=== PATIENT | male | born 1960 ===

== ENCOUNTER 2021-05-20 01:36 | Emergency (ER) | payer MEDICAID | END 2021-05-20 01:41 | disposition left against medical advice (07) | LOC: ED 01:36 ==

== ENCOUNTER 2021-05-20 15:28 | Inpatient (IN) | payer MEDICAID ==
[2021-05-20] MEDS ORDERED: ASPIRIN 325 MG TAB PO ONE (15:44)
--- NOTE | 2021-05-20 16:06 | XRay Report ---
CHEST 2 VIEWS INDICATION / CLINICAL INFORMATION: Chest pain. COMPARISON: None available. FINDINGS: SUPPORT DEVICES: None. HEART / MEDIASTINUM: No significant abnormality. LUNGS / PLEURA: No significant pulmonary or pleural abnormality. No pneumothorax. ADDITIONAL FINDINGS: No significant additional findings. IMPRESSION: 1. No acute findings. Signer Name: Jaydon Conteh MD Signed: 05/20/2021 4:01 PM Workstation Name: [id number]
[2021-05-20 16:37] LABS: Basophils % (Auto) 0.4 % (0.0-1.8); Eosinophils # (Auto) 0.1 K/mm3 (0.0-0.4); Eosinophils % (Auto) 0.6 % (0.0-4.3); Hematocrit 47.1 % (35.5-45.6); Hemoglobin 16.1 gm/dl (11.8-15.2); Lymphocytes # (Auto) 1.7 K/mm3 (1.2-5.4); Lymphocytes % (Auto) 15.5 % (13.4-35.0); Mean Corpuscular HGB Conc 34 % (32-34); Mean Corpuscular Volume 87 fl (84-94); Monocytes # (Auto) 0.8 K/mm3 (0.0-0.8); Monocytes % (Auto) 7.7 % (0.0-7.3); Platelet Count 239 K/mm3 (140-440); Red Blood Count 5.44 M/mm3 (3.65-5.03); Red Cell Distribution Width 14.8 % (13.2-15.2)
[2021-05-20 16:54] LABS: Alanine Aminotransferase 20 units/L (7-56); Albumin 3.9 g/dL (3.9-5); BUN/Creatinine Ratio 10; Blood Urea Nitrogen 9 mg/dL (9-20); Calcium 9.7 mg/dL (8.4-10.2); Hemolysis Index 21
--- NOTE | 2021-05-20 17:56 | Emergency Department Report ---
<JOSIE FOURNIERPASTOR - Last Filed: 05/20/21 21:54> ED Chest Pain HPI - General Chief Complaint: Chest Pain Stated Complaint: CHEST PAINS Time Seen by Provider: 05/20/21 17:09 - Related Data Allergies Allergy/AdvReac Type Severity Reaction Status Date / Time No Known Allergies Allergy Unverified 05/20/21 15:44 ED Course - Reevaluation(s) Reevaluation #1: I reviewed the findings and management of this patient in real-time and I have personally seen and examined this patient and participated in the decision making for this patient with the midlevel. Patient is a 60-year-old male who presents emergency room with chest pain. Patient had a CTA was inconclusive and then had a nuclear scan and it shows a pulmonary infarct and PE. Patient placed on a heparin drip with heparin protocol. I examined the patient. Lung sounds are clear to auscultation. CV exam shows a normal S1-S2 and no murmur. Patient's abdominal exam is negative. Patient's skin exam is negative. I discussed all results with patient. I discussed plan of care with patient. Patient agrees with plan of care and admission. Patient to be admitted to the hospitalist service. 05/20/21 21:54 - Consultations Consultation #1: Hospitalist consulted for admission. Hospitalist to admit patient. 05/20/21 21:55 ED Medical Decision Making - Lab Data Result diagrams: 05/20/21 16:08 05/20/21 16:08 ED Disposition Clinical Impression: SOB (shortness of breath) Pulmonary embolism Qualifiers: Pulmonary embolism type: unspecified Chronicity: acute Acute cor pulmonale presence: without acute cor pulmonale Qualified Code(s): I26.99 - Other pulmonary embolism without acute cor pulmonale Chest pain Qualifiers: Chest pain type: unspecified Qualified Code(s): R07.9 - Chest pain, unspecified Disposition: DC-09 OP ADMIT IP TO THIS HOSP Condition: Serious Instructions: Nonspecific Chest Pain, Adult Referrals: PRIMARY CARE,MD [Primary Care Provider] - 3-5 Days Print Language: SAMOAN <SHIKHA CARRERA - Last Filed: 05/20/21 22:21> ED Chest Pain HPI - General Source: patient Mode of arrival: Ambulatory Limitations: No Limitations - History of Present Illness Initial Comments: Patient is a 60-year-old male presents emergency room with complaints of left lateral rib pain that began early this morning around 12 AM. He states it is an intermittent sharp pain. He states his pain is worse with taking a deep breath and he feels short of breath. He denies ever having pain like this before. He denies any fever, nausea, vomiting, diarrhea, chills, body aches, hemoptysis, leg swelling. He denies any recent travel, recent surgery, sick contacts. He is a current every day smoker 3 packs/week. He denies any significant family cardiac history. Past medical history of blindness. No allergies to medications. Severity scale (0 -10): 1 Heart Score - HEART Score History: Moderately suspicious EKG: Normal Age: 45-65 Risk factors: 1-2 risk factors Troponin: < normal limit HEART Score: 3 - EKG Read Time Time EKG Completed: 15:44 EKG Read Time: 15:49 ED Review of Systems ROS: Stated complaint: CHEST PAINS Other details as noted in HPI Comment: All other systems reviewed and negative ED Past Medical Hx - Past Medical History Previous Medical History?: Yes Additional medical history: blind - Surgical History Past Surgical History?: Yes Additional Surgical History: eye ED Physical Exam - General Limitations: No Limitations General appearance: alert, in no apparent distress - Head Head exam: Present: atraumatic, normocephalic - Eye Eye exam: Present: normal appearance - ENT ENT exam: Present: mucous membranes moist - Respiratory Respiratory exam: Present: normal lung sounds bilaterally. Absent: respiratory distress, wheezes, rales, rhonchi, stridor, chest wall tenderness, accessory muscle use, decreased breath sounds, prolonged expiratory - Cardiovascular Cardiovascular Exam: Present: regular rate, normal rhythm, normal heart sounds. Absent: systolic murmur, diastolic murmur, rubs, gallop - Neurological Exam Neurological exam: Present: alert, oriented X3 - Psychiatric Psychiatric exam: Present: normal affect, normal mood - Skin Skin exam: Present: warm, dry, intact ED Course Vital Signs 05/20/21 15:35 Temperature 98.4 F Pulse Rate 60 Respiratory 18 Rate Blood Pressure 144/90 [Right] O2 Sat by Pulse 100 Oximetry WILLY score - Willy Score Age > 65: (0) No Aspirin use within the Past 7 Days: (0) No 3 or more CAD Risk Factors: (0) No 2 or more Angina events in past 24 hrs: (0) No Known CAD with more than 50% Stenosis: (0) No Elevated Cardiac Markers: (0) No ST Deviation Greater than 0.5mm: (0) No WILLY Score: 0 ED Medical Decision Making - Lab Data Result diagrams: 05/20/21 16:08 05/20/21 16:08 Lab Results 05/20/21 05/20/21 05/20/21 Range/Units 16:08 16:08 17:30 WBC 11.0 (4.5-11.0) K/mm3 RBC 5.44 H (3.65-5.03) M/mm3 Hgb 16.1 H (11.8-15.2) gm/dl Hct 47.1 H (35.5-45.6) % MCV 87 (84-94) fl MCH 30 (28-32) pg MCHC 34 (32-34) % RDW 14.8 (13.2-15.2) % Plt Count 239 (140-440) K/mm3 Lymph % (Auto) 15.5 (13.4-35.0) % [place] % (Auto) 7.7 H (0.0-7.3) % Eos % (Auto) 0.6 (0.0-4.3) % Baso % (Auto) 0.4 (0.0-1.8) % Lymph # (Auto) 1.7 (1.2-5.4) K/mm3 [place] # (Auto) 0.8 (0.0-0.8) K/mm3 Eos # (Auto) 0.1 (0.0-0.4) K/mm3 Baso # (Auto) 0.0 (0.0-0.1) K/mm3 Seg Neutrophils % 75.8 H (40.0-70.0) % Seg Neutrophils # 8.3 H (1.8-7.7) K/mm3 D-Dimer 1092.37 H (0-234) ng/mlDDU Sodium 135 L (137-145) mmol/L Potassium 4.1 (3.6-5.0) mmol/L Chloride 100.2 (98-107) mmol/L Carbon Dioxide 24 (22-30) mmol/L Anion Gap 15 mmol/L BUN 9 (9-20) mg/dL Creatinine 0.9 (0.8-1.3) mg/dL Estimated GFR > 60 ml/min BUN/Creatinine Ratio 10 % Glucose 114 H (75-100) mg/dL Calcium 9.7 (8.4-10.2) mg/dL Total Bilirubin 0.90 (0.1-1.2) mg/dL AST 18 (5-40) units/L ALT 20 (7-56) units/L Alkaline Phosphatase 131 H (35-129) units/L Troponin T < 0.010 (0.00-0.029) ng/mL Total Protein 7.7 (6.3-8.2) g/dL Albumin 3.9 (3.9-5) g/dL Albumin/Globulin Ratio 1.0 % 05/20/ Range/Units 18:24 WBC (4.5-11.0) K/mm3 RBC (3.65-5.03) M/mm3 Hgb (11.8-15.2) gm/dl Hct (35.5-45.6) % MCV (84-94) fl MCH (28-32) pg MCHC (32-34) % RDW (13.2-15.2) % Plt Count (140-440) K/mm3 Lymph % (Auto) (13.4-35.0) % [place] % (Auto) (0.0-7.3) % Eos % (Auto) (0.0-4.3) % Baso % (Auto) (0.0-1.8) % Lymph # (Auto) (1.2-5.4) K/mm3 [place] # (Auto) (0.0-0.8) K/mm3 Eos # (Auto) (0.0-0.4) K/mm3 Baso # (Auto) (0.0-0.1) K/mm3 Seg Neutrophils % (40.0-70.0) % Seg Neutrophils # (1.8-7.7) K/mm3 D-Dimer (0-234) ng/mlDDU Sodium (137-145) mmol/L Potassium (3.6-5.0) mmol/L Chloride (98-107) mmol/L Carbon Dioxide (22-30) mmol/L Anion Gap mmol/L BUN (9-20) mg/dL Creatinine (0.8-1.3) mg/dL Estimated GFR ml/min BUN/Creatinine Ratio % Glucose (75-100) mg/dL Calcium (8.4-10.2) mg/dL Total Bilirubin (0.1-1.2) mg/dL AST (5-40) units/L ALT (7-56) units/L Alkaline Phosphatase (35-129) units/L Troponin T < 0.010 (0.00-0.029) ng/mL Total Protein (6.3-8.2) g/dL Albumin (3.9-5) g/dL Albumin/Globulin Ratio % - EKG Data EKG shows normal: sinus rhythm, axis, intervals, QRS complexes Rate: bradycardia (at 56 bpm) - EKG Data 05/20/21 17:55 non specific T wave inversion in V1, V2 no STEMI biatrial enlargement - Radiology Data Radiology results: report reviewed Ordering Physician: TAYE GUTIERREZ MD Date of Service: 05/20/21 Procedure(s): XR chest routine 2V Accession Number(s): [id number] cc: ED MD BRENDA Fluoro Time In Minutes: CHEST 2 VIEWS INDICATION / CLINICAL INFORMATION: Chest pain. COMPARISON: None available. FINDINGS: SUPPORT DEVICES: None. HEART / MEDIASTINUM: No significant abnormality. LUNGS / PLEURA: No significant pulmonary or pleural abnormality. No pneumothorax. ADDITIONAL FINDINGS: No significant additional findings. IMPRESSION: 1. No acute findings. Signer Name: Jaydon Conteh MD Signed: 05/20/2021 4:01 PM Workstation Name: [id number] Transcribed By: DB Dictated By: JAYDON CONTEH MD Electronically Authenticated By: JAYDON CONTEH MD Signed Date/Time: 05/20/211600 DD/ 00 TD/TT: Ordering Physician: ROBLES PEGUERO Date of Service: 05/20/21 Procedure(s): CT angio chest Accession Number(s): [id number] cc: ROBLES PEGUERO ADDENDUM Addendum: Examination was compared with nuclear medicine examination. The filling defect within the left lower lung appears relatively extensive area of density in the left lower lung described above. Findings consistent with PTE with associated small infarct. Findings discussed with Shikha Carrera in ER. Signer Name: Bijan Freeman MD Signed: 05/20/2021 9:50 PM Workstation Name: [id number] Addendum Transcribed By: VIVIAN Addendum Dictated By: GLORIA FREEMAN MD Addendum Electronically Authenticated By: GLORIA FREEMAN MD Addendum Signed Date/Time: 05/20/212149 DD/ TD/TT: / CTA CHEST WITH CONTRAST INDICATION / CLINICAL INFORMATION: pleuritic CP, SOB, elevated d-dimer. TECHNIQUE: Axial CT images were obtained through the chest after injection of IV contrast. 3 plane MIP and/or 3D reconstructions were produced. All CT scans at this location are performed using CT dose reduction for ALARA by means of automated exposure control. COMPARISON: None available. FINDINGS: Contrast bolus time is suboptimal with opacification throughout the aorta. The central pulmonary arteries appear patent. There is low signal density within several segmental and peripheral pulmonary arteries bilaterally. Examples in the left lung, axial image 30 L1. Visualized portions of the upper abdomen appear normal. Emphysematous change within the lungs. No focal consolidation right lung. There is increased density left lower lung peripheral opacity. No acute bone findings are seen. Mural thrombus in the abdominal aorta. IMPRESSION: 1. Suboptimal contrast bolus timing. No definite central PTE however segmental and peripheral PTE cannot be excluded with areas of low signal density in segment peripheral p ulmonary arteries as described above. 2. Left lower lung opacity/infiltrate near the costophrenic angle. CRITICAL RESULT: Time of Discovery (DYEING MACHINE TENDER/CDT): 607 Time of Communication (DYEING MACHINE TENDER/CDT): 607 Licensed Practitioner Receiving Report: King ROBLES Read-Back Performed: Yes. Signer Name: Bijan Freeman MD Signed: 05/20/2021 7:09 PM Workstation Name: [id number] Transcribed By: VIVIAN Dictated By: GLORIA FREEMAN MD Electronically Authenticated By: GLORIA FREEMAN MD Signed Date/Time: 05/20/211908 DD/ 04 TD/TT: -- [Addendum Report Added by GLORIA FREEMAN at 2021-05-20 21:56:26] [facility] [address] [id number] Cat Scan Report Signed Patient: ANDRES ALEJANDRO MR#: [id number] : 1960 Acct:[id number] Age/Sex: 60 / M ADM Date: 05/20/21 Loc: ED Attending Dr: Ordering Physician: ROBLES PEGUERO Date of Service: 05/20/21 Procedure(s): CT angio chest Accession Number(s): [id number] cc: ROBLES PEGUERO CTA CHEST WITH CONTRAST INDICATION / CLINICAL INFORMATION: pleuritic CP, SOB, elevated d-dimer. TECHNIQUE: Axial CT images were obtained through the chest after injection of IV contrast. 3 plane MIP and/or 3D reconstructions were produced. All CT scans at this location are performed using CT dose reduction for ALARA by means of automated exposure control. COMPARISON: None available. FINDINGS: Contrast bolus time is suboptimal with opacification throughout the aorta. The central pulmonary arteries appear patent. There is low signal density within several segmental and peripheral pulmonary arteries bilaterally. Examples in the left lung, axial image 30 L1. Visualized portions of the upper abdomen appear normal. Emphysematous change within the lungs. No focal consolidation right lung. There is increased density left lower lung peripheral opacity. No acute bone findings are seen. Mural thrombus in the abdominal aorta. IMPRESSION: 1. Suboptimal contrast bolus timing. No definite central PTE however segmental and peripheral PTE cannot be excluded with areas of low signal density in segment peripheral pulmonary arteries as described above. 2. Left lower lung opacity/infiltrate near the costophrenic angle. CRITICAL RESULT: Time of Discovery (DYEING MACHINE TENDER/CDT): 607 Time of Communication (DYEING MACHINE TENDER/CDT): 607 Licensed Practitioner Receiving Report: King ROBLES Read-Back Performed: Yes. Signer Name: Bijan Freeman MD Signed: 05/20/2021 7:09 PM Workstation Name: [id number] Transcribed By: VIVIAN Dictated By: GLORIA FREEMAN MD Electronically Authenticated By: GLROIA FREEMAN MD Signed Date/Time: 05/20/211908 DD/ 04 TD/TT: Print Ordering Physician: ROBLES PEGUERO Date of Service: 05/20/21 Procedure(s): NM perfusion only lung scan Accession Number(s): [id number] cc: ROBLES PEGUERO Nasal medicine perfusion only scan INDICATION: Left chest pain FINDINGS: 5 mCi of technetium 99 MAA administered for perfusion only. There is questionable left lower lung segmental defect. This corresponds to the questioned area on CTA. IMPRESSION: Suggested filling defect within the left lower lung consistent with PE when correlated with CT angiogram done earlier tonight. There is a density left lower lung suggest pulmonary infarct. CRITICAL RESULT: Time of Discovery (DYEING MACHINE TENDER/CDT): 844 Time of Communication (DYEING MACHINE TENDER/CDT): 845 Licensed Practitioner Receiving Report: Shikha Carrera Read-Back Performed: Yes. Signer Name: Bijan Freeman MD Signed: 05/20/2021 9:46 PM Workstation Name: [id number] Transcribed By: VIVIAN Dictated By: GLORIA FREEMAN MD Electronically Authenticated By: GLORIA FREEMAN MD Signed Date/Time: 05/20/212145 DD/ 32 TD/TT: - Medical Decision Making Patient is a 60-year-old male presents emergency room with complaints of left lateral rib pain that began early this morning around 12 AM. He states it is an intermittent sharp pain. He states his pain is worse with taking a deep breath and he feels short of breath. He denies ever having pain like this before. He denies any fever, nausea, vomiting, diarrhea, chills, body aches, hemoptysis, leg swelling. He denies any recent travel, recent surgery, sick contacts. He is a current every day smoker 3 packs/week. He denies any significant family cardiac history. Past medical history of blindness. No allergies to medications. VSS. EKG: non specific T wave inversion in V1, V2, no STEMI, biatrial enlargement. labs significant for elevated d-dimer. troponin is negative x2. CXR: 1. No acute findings. CTA chest: 1. Suboptimal contrast bolus timing. No definite central PTE however segmental and peripheral PTE cannot be excluded with areas of low signal density in segment peripheral pulmonary arteries as described above. 2. Left lower lung opacity/infiltrate near the costophrenic angle. VQ scan: Suggested filling defect within the left lower lung consistent with PE when [facility] There is a density left lower lung suggest pulmonary infarct. discussed case with Dr. Rasmussen, ER attending who agrees with admission and placed order for heparin drip. Dr. Cummins, hospitalist accepted and resumed care of patient, admitted to hospitalist service. Critical Care Time: Yes Critical care time in (mins) excluding proc time.: 35 Critical care attestation.: If time is entered above; I have spent that time in minutes in the direct care of this critically ill patient, excluding procedure time. Critical Care Time: critical care time includes multiple reexaminations, interpretation of diagnostic and laboratory testing, and consultations ED Disposition Is pt being admited?: Yes Does the pt Need Aspirin: No Time of Disposition: 22:08
--- NOTE | 2021-05-20 19:14 | Cat Scan Report ---
CTA CHEST WITH CONTRAST INDICATION / CLINICAL INFORMATION: pleuritic CP, SOB, elevated d-dimer. TECHNIQUE: Axial CT images were obtained through the chest after injection of IV contrast. 3 plane OH P and/or 3D reconstructions were produced. All CT scans at this location are performed using CT dose reduction for ALARA by means of automated exposure control. COMPARISON: None available. FINDINGS: Contrast bolus time is suboptimal with opacification throughout the aorta. The central pulmonary jackie marlo appear patent. There is low signal density within several segmental and peripheral pulmonary art eries bilaterally. Examples in the left lung, axial image 30 L1. Visualized portions of the upper abd omen appear normal. Emphysematous change within the lungs. No focal consolidation right lung. There i s increased density left lower lung peripheral opacity. No acute bone findings are seen. Mural thromb us in the abdominal aorta. IMPRESSION: 1. Suboptimal contrast bolus timing. No definite central PTE however segmental and peripheral PTE can not be excluded with areas of low signal density in segment peripheral pulmonary arteries as describe d above. 2. Left lower lung opacity/infiltrate near the costophrenic angle. CRITICAL RESULT: Time of Discovery (AIDS NURSE/CDT): 607 Time of Communication (AIDS NURSE/CDT): 607 Licensed Practitioner Receiving Report: King ROBLES Read-Back Performed: Yes. Signer Name: Bijan Freeman MD Signed: 05/20/2021 7:09 PM Workstation Name: [id number]
[2021-05-20] MEDS ORDERED: cefTRIAXone/NS 1 GM/50 ML 1 GM/50 ML BAG IV ONE (19:28)
[2021-05-20] MEDS ORDERED: SODIUM CHLORIDE 0.9% 1000 ML 1,000 ML IV ONE (19:28)
[2021-05-20] MEDS ORDERED: AZITHROMYCIN/NS 500 MG/250 ML 500 MG/250 ML BAG IV ONE (19:28)
--- NOTE | 2021-05-20 21:51 | Nuclear Medicine Report ---
Nasal medicine perfusion only scan INDICATION: Left chest pain FINDINGS: 5 mCi of technetium 99 MAA administered for perfusion only. There is questionable left lowe r lung segmental defect. This corresponds to the questioned area on CTA. IMPRESSION: Suggested filling defect within the left lower lung consistent with PE when correlated with CT angiog krista done earlier tonight. There is a density left lower lung suggest pulmonary infarct. CRITICAL RESULT: Time of Discovery (CIVIL ENGINEER IN TRAINING/CDT): 844 Time of Communication (CIVIL ENGINEER IN TRAINING/CDT): 845 Licensed Practitioner Receiving Report: Shikha Carrera Read-Back Performed: Yes. Signer Name: Bijan Freeman MD Signed: 05/20/2021 9:46 PM Workstation Name: [id number]
[2021-05-20] MEDS ORDERED: HEPARIN 10,000 UNITS/10 ML VIAL IV PRN (21:52)
[2021-05-20] MEDS ORDERED: HEPARIN 10,000 UNITS/10 ML VIAL IV ONE (21:52)
[2021-05-20 22:18] LABS: INR 1.05 (0.87-1.13); Partial Thromboplastin Time 30.3 Sec. (24.2-36.6)
--- NOTE | 2021-05-20 22:44 | History and Physical Report ---
History of Present Illness Date of examination: 05/20/21 Date of admission: 05/20/21 22:08 Chief complaint: chest pain History of present illness: This is a 60-year-old male who presents emergency room with chest pain. Patient had a CTA was inconclusive and then had a nuclear scan and it shows a pulmonary infarct and PE. Patient placed on a heparin drip with heparin protocol. ED work-up showed WBC 11.0, hemoglobin 16.1, platelet 239, D-dimer 1092.37, sodium 135, potassium 4.1, serum glucose 114, troponin negative. Patient seen in the ED alert oriented x3 he reports chest pain and difficulty breathing CT of the chest was done patient was positive for pulmonary embolus Past History Past Medical History: No medical history Social history: lives with family, smoking Family history: no significant family history Medications and Allergies Allergies Allergy/AdvReac Type Severity Reaction Status Date / Time No Known Allergies Allergy Unverified 05/20/21 15:44 Active Meds: Active Medications Heparin Sodium (Porcine) (Heparin 10,000 Units/10 Ml Vial) 3,100 unit 40 unit/kg (3100 unit) IV Q6H PRN PRN Reason: Anti-Xa Assay < 0.1 units/ml Heparin Sodium/Sodium Chloride (Heparin/ 0.45% Nacl-25,000 Unit/500 Ml) 25,000 unit in 500 mls @ 23 mls/hr IV TITR LINDA; Protocol Review of Systems Ears, nose, mouth and throat: no epistaxis, no bleeding gums Cardiovascular: chest pain Gastrointestinal: no melena Integumentary: no rash, no pruritis Neurological: no head injury Psychiatric: no disorientation, no hallucinations Hematologic/Lymphatic: no lymphadenopathy, no lymphedema Exam - Constitutional Vitals: Temp Pulse Resp BP Pulse Ox 98.4 F 60 18 144/90 100 05/20/21 15:35 05/20/21 15:35 05/20/21 15:35 05/20/21 15:35 05/20/21 15:35 General appearance: Present: mild distress, well-nourished - EENT Eyes: Present: PERRL ENT: hearing intact, clear oral mucosa - Neck Neck: Present: supple, normal ROM - Respiratory Respiratory effort: normal Respiratory: bilateral: CTA - Cardiovascular Heart Sounds: Present: S1 & S2. Absent: rub, click - Extremities Extremities: pulses symmetrical, No edema Peripheral Pulses: within normal limits - Abdominal General gastrointestinal: Present: soft, non-tender, non-distended, normal bowel sounds Male genitourinary: Present: normal - Integumentary Integumentary: Present: clear, warm, dry - Musculoskeletal Musculoskeletal: gait normal, strength equal bilaterally - Psychiatric Psychiatric: appropriate mood/affect, intact judgment & insight - Neurologic Neurologic: CNII-XII intact, moves all extremities - Allied Health Allied health notes reviewed: nursing HEART Score - HEART Score EKG: Normal Age: 45-65 Risk factors: 1-2 risk factors Troponin: Troponin T < 0.010 ng/mL (0.00-0.029) 05/20/21 18:24 Troponin: < normal limit Results - Labs CBC & Chem 7: 05/20/21 16:08 05/20/21 16:08 Labs: Abnormal lab results 05/20/21 05/20/21 05/20/21 Range/Units 16:08 16:08 17:30 RBC 5.44 H (3.65-5.03) M/mm3 Hgb 16.1 H (11.8-15.2) gm/dl Hct 47.1 H (35.5-45.6) % [place] % (Auto) 7.7 H (0.0-7.3) % Seg Neutrophils % 75.8 H (40.0-70.0) % Seg Neutrophils # 8.3 H (1.8-7.7) K/mm3 D-Dimer 1092.37 H (0-234) ng/mlDDU Sodium 135 L (137-145) mmol/L Glucose 114 H (75-100) mg/dL Alkaline Phosphatase 131 H (35-129) units/L Assessment and Plan - Patient Problems (1) Pulmonary embolism Current Visit: Yes Status: Acute Qualifiers: Pulmonary embolism type: unspecified Chronicity: acute Acute cor pulmonale presence: without acute cor pulmonale Qualified Code(s): I26.99 - Other pulmonary embolism without acute cor pulmonale Plan to address problem: Patient came with chest pain-has elevated d-dimer on admission CT of the chest positive for PE Start heparin drip per protocol Nuclear Plant Technical Advisor consult. Echocardiogram (2) Chest pain Current Visit: Yes Status: Acute Qualifiers: Chest pain type: unspecified Qualified Code(s): R07.9 - Chest pain, unspecified Plan to address problem: Likely secondary to pulmonary embolism As needed pain management (3) Marijuana use Current Visit: Yes Status: Acute Plan to address problem: Discussed cessation (4) DVT prophylaxis Current Visit: Yes Status: Acute Plan to address problem: Patient on heparin drip for PE (5) Full code status Current Visit: Yes Status: Acute Plan to address problem: Patient is full code
[2021-05-20] MEDS ORDERED: ALUM-MAG HYDROXIDE-SIMETHICONE 200-200-20MG/5ML ORAL LIQD 30 ML PO PRN (22:54)
[2021-05-20] MEDS ORDERED: NALOXONE 0.4 MG/1 ML INJ IV PRN (22:54)
[2021-05-20] MEDS ORDERED: MAGNESIUM HYDROXIDE (MOM) ORAL LIQD UDC PO PRN (22:54)
[2021-05-20] MEDS ORDERED: MORPHINE 2 MG/1 ML INJ IV PRN (22:54)
[2021-05-20] MEDS ORDERED: SENNOSIDES 8.6 MG TAB PO PRN (22:54)
[2021-05-20] MEDS ORDERED: ONDANSETRON 4 MG/2 ML INJ IV PRN (22:54)
[2021-05-20] MEDS ORDERED: METOCLOPRAMIDE 10 MG/2 ML INJ IV PRN (22:54)
[2021-05-20] MEDS: HEPARIN/ 0.45% NACL DRIP 25,000 UNIT/500 ML BAG IV SCH (23:06)
[2021-05-21] MEDS: ACETAMINOPHEN 325 MG TAB PO PRN (02:04)
[2021-05-21] MEDS: HYDROcodone/ACETAMINOPHEN 5-325 MG TAB PO PRN ×3 (05:40→21:41)
[2021-05-21 06:53] LABS: Basophils % (Auto) 0.5 % (0.0-1.8); Eosinophils # (Auto) 0.1 K/mm3 (0.0-0.4); Eosinophils % (Auto) 0.7 % (0.0-4.3); Hematocrit 42.2 % (35.5-45.6); Hemoglobin 14.7 gm/dl (11.8-15.2); Lymphocytes % (Auto) 21.5 % (13.4-35.0); Mean Corpuscular HGB Conc 35 % (32-34); Mean Corpuscular Volume 87 fl (84-94); Monocytes # (Auto) 0.9 K/mm3 (0.0-0.8); Monocytes % (Auto) 9.2 % (0.0-7.3); Platelet Count 205 K/mm3 (140-440); Red Blood Count 4.87 M/mm3 (3.65-5.03); Red Cell Distribution Width 14.9 % (13.2-15.2)
[2021-05-21 07:13] LABS: Alanine Aminotransferase 18 units/L (7-56); Albumin 3.4 g/dL (3.9-5); BUN/Creatinine Ratio 9; Blood Urea Nitrogen 8 mg/dL (9-20); Calcium 8.6 mg/dL (8.4-10.2); Hemolysis Index 8
[2021-05-21] MEDS: FAMOTIDINE 20 MG/2 ML INJ IV SCH ×2 (09:11→21:41)
--- NOTE | 2021-05-21 10:42 | Progress Note ---
Assessment and Plan Assessment and plan: 60-year-old male presented through the emergency department with chest pain. CTA of the chest/pulmonary perfusion imaging confirmed acute pulmonary embolus. Patient was admitted with diagnosis of acute pulmonary embolus and placed on IV heparin for anticoagulation. Acute pulmonary embolism/pulmonary infarct Chest pain. Etiology secondary to #1 Marijuana use 05/21/2021. Patient will be maintained on IV heparin drip for now. We will transition to Eliquis. Check echocardiogram to rule out right heart strain. Vascular surgery consultation History Interval history: This is a 60-year-old male who presents emergency room with chest pain. Patient had a CTA was inconclusive and then had a nuclear scan and it shows a pulmonary infarct and PE. Patient placed on a heparin drip with heparin protocol. ED work-up showed WBC 11.0, hemoglobin 16.1, platelet 239, D-dimer 1092.37, sodium 135, potassium 4.1, serum glucose 114, troponin negative. Patient seen in the ED alert oriented x3 he reports chest pain and difficulty breathing CT of the chest was done patient was positive for pulmonary embolus Hospitalist Physical - Constitutional Vitals: Temp Pulse Resp BP Pulse Ox 98.5 F 60 19 140/82 98 05/21/21 08:08 05/21/21 08:08 05/21/21 08:08 05/21/21 08:08 05/21/21 08:54 General appearance: Present: mild distress, well-nourished - EENT Eyes: Present: PERRL, EOM intact ENT: hearing intact, clear oral mucosa, dentition normal - Neck Neck: Present: supple, normal ROM - Respiratory Respiratory effort: normal Respiratory: bilateral: CTA - Cardiovascular Rhythm: regular Heart Sounds: Present: S1 & S2. Absent: gallop, rub - Extremities Extremities: no ischemia, No edema, Full ROM - Abdominal General gastrointestinal: soft, non-tender, non-distended, normal bowel sounds - Integumentary Integumentary: Present: clear, warm, dry - Neurologic Neurologic: CNII-XII intact, moves all extremities HEART Score - HEART Score EKG: Normal Age: 45-65 Risk factors: 1-2 risk factors Troponin: Troponin T < 0.010 ng/mL (0.00-0.029) 05/20/21 18:24 Troponin: < normal limit Results - Labs CBC & Chem 7: 05/21/21 05:29 05/21/21 05:29 Labs: Laboratory Last Values WBC 9.3 K/mm3 (4.5-11.0) 05/21/21 05:29 RBC 4.87 M/mm3 (3.65-5.03) 05/21/21 05:29 Hgb 14.7 gm/dl (11.8-15.2) 05/21/21 05:29 Hct 42.2 % (35.5-45.6) 05/21/21 05:29 MCV 87 fl (84-94) 05/21/21 05:29 MCH 30 pg (28-32) 05/21/21 05:29 MCHC 35 % (32-34) H 05/21/21 05:29 RDW 14.9 % (13.2-15.2) 05/21/21 05:29 Plt Count 205 K/mm3 (140-440) 05/21/21 05:29 Lymph % (Auto) 21.5 % (13.4-35.0) 05/21/21 05:29 [place] % (Auto) 9.2 % (0.0-7.3) H 05/21/21 05:29 Eos % (Auto) 0.7 % (0.0-4.3) 05/21/21 05:29 Baso % (Auto) 0.5 % (0.0-1.8) 05/21/21 05:29 Lymph # (Auto) 2.0 K/mm3 (1.2-5.4) 05/21/21 05:29 [place] # (Auto) 0.9 K/mm3 (0.0-0.8) H 05/21/21 05:29 Eos # (Auto) 0.1 K/mm3 (0.0-0.4) 05/21/21 05:29 Baso # (Auto) 0.0 K/mm3 (0.0-0.1) 05/21/21 05:29 Seg Neutrophils % 68.1 % (40.0-70.0) 05/21/21 05:29 Seg Neutrophils # 6.3 K/mm3 (1.8-7.7) 05/21/21 05:29 PT 14.3 Sec. (12.2-14.9) 05/20/21 22:02 INR 1.05 (0.87-1.13) 05/20/21 22:02 APTT 30.3 Sec. (24.2-36.6) 05/20/21 22:02 D-Dimer 1092.37 ng/mlDDU (0-234) H 05/20/21 17:30 Heparin Anti-Xa Level 0.21 U.I./ml (0.3-0.7) L 05/21/21 05:29 Sodium 137 mmol/L (137-145) 05/21/21 05:29 Potassium 3.6 mmol/L (3.6-5.0) 05/21/21 05:29 Chloride 103.6 mmol/L (98-107) 05/21/21 05:29 Carbon Dioxide 23 mmol/L (22-30) 05/21/21 05:29 Anion Gap 14 mmol/L 05/21/21 05:29 BUN 8 mg/dL (9-20) L 05/21/21 05:29 Creatinine 0.9 mg/dL (0.8-1.3) 05/21/21 05:29 Estimated GFR > 60 ml/min 05/21/21 05:29 BUN/Creatinine Ratio 9 % 05/21/21 05:29 Glucose 78 mg/dL (75-100) 05/21/21 05:29 Hemoglobin A1c 5.6 % (4-6) 05/20/21 16:08 Calcium 8.6 mg/dL (8.4-10.2) 05/21/21 05:29 Total Bilirubin 0.50 mg/dL (0.1-1.2) 05/21/21 05:29 AST 15 units/L (5-40) 05/21/21 05:29 ALT 18 units/L (7-56) 05/21/21 05:29 Alkaline Phosphatase 120 units/L (35-129) 05/21/21 05:29 Troponin T < 0.010 ng/mL (0.00-0.029) 05/20/21 18:24 Total Protein 7.1 g/dL (6.3-8.2) 05/21/21 05:29 Albumin 3.4 g/dL (3.9-5) L 05/21/21 05:29 Albumin/Globulin Ratio 0.9 % 05/21/21 05:29 Malhotra/IV: Voiding Method Urinal Active Medications - Current Medications Current Medications: Generic Name Dose Route Start Last Admin Trade Name Freq PRN Reason Stop Dose Admin Acetaminophen 650 mg 05/20/21 22:54 05/21/21 02:04 Acetaminophen 325 Mg Tab PO 650 mg Q4H PRN Administration Pain MILD(1-3)/Fever >100.5/SOL Hydrocodone Bitart/Acetaminophen 2 each 05/20/21 22:54 05/21/21 05:40 Hydrocodone/Acetaminophen 5-325 Mg Tab PO 2 each Q6H PRN Administration Pain, Moderate (4-6) Al Hydrox/Mg Hydrox/Simethicone 30 ml 05/20/21 22:54 Alum-Mag Hydroxide-Simethicone [id number]/5ml Oral Liqd 30 Ml PO Q4H PRN Indigestion Famotidine 20 mg 05/21/21 10:00 05/21/21 09:11 Famotidine 20 Mg/2 Ml Inj IV 20 mg BID LINDA Administration Heparin Sodium (Porcine) 3,100 unit 05/20/21 21:52 Heparin 10,000 Units/10 Ml Vial 40 unit/kg (3100 unit) IV Q6H PRN Anti-Xa Assay < 0.1 units/ml Heparin Sodium/Sodium Chloride 25,000 unit in 500 mls @ 23 mls/hr 05/20/21 22:00 05/21/21 07:51 Heparin/ 0.45% Nacl-25,000 Unit/500 Ml IV 1,250 units/hr TITR LINDA 25 mls/hr Titration Protocol 1,150 UNITS/HR Magnesium Hydroxide 30 ml 05/20/21 22:54 Magnesium Hydroxide (Mom) Oral Liqd Udc PO Q4H PRN Constipation Metoclopramide HCl 10 mg 05/20/21 22:54 Metoclopramide 10 Mg/2 Ml Inj IV Q6H PRN Nausea And Vomiting Naloxone HCl 0.1 mg 05/20/21 22:54 Naloxone 0.4 Mg/1 Ml Inj IV Q2MIN PRN Res Rate </= 8 or 02 SAT < 92% Ondansetron HCl 4 mg 05/20/21 22:54 Ondansetron 4 Mg/2 Ml Inj IV Q8H PRN Nausea And Vomiting Senna 8.6 mg 05/20/21 22:54 Sennosides 8.6 Mg Tab PO Q12HR PRN Constipation Sodium Chloride 10 ml 05/20/21 22:54 Sodium Chloride 0.9% 10 Ml Flush Syringe IV PRN PRN LINE FLUSH
--- NOTE | 2021-05-21 15:45 | Consultation ---
History of Present Illness Consult date: 05/21/21 Reason for consult: chest pain History of present illness: This is a 60-year-old male who presents emergency room with chest pain. Patient had a CTA was inconclusive and then had a nuclear scan and it shows a pulmonary infarct and PE. Patient placed on a heparin drip with heparin protocol. ED work-up showed WBC 11.0, hemoglobin 16.1, platelet 239, D-dimer 1092.37, sodium 135, potassium 4.1, serum glucose 114, troponin negative. Patient seen in the ED alert oriented x3 he reports chest pain and difficulty breathing CT of the chest was done patient was suspicious for pulmonary embolus but not conclusive because of suboptimal dye bolus. A perfusion lung scan was performed which seems to have confirmed the pulmonary embolism and also pulmonary infarct which was noted on CT in the left side. Patient denied significant immobilization even though he reports sitting for long hours in the porch and not in the chair on his porch on a daily basis. He also denied any swelling or pain in the lower extremity. Pain is mostly in the posterior left chest and is somewhat pleuritic Past History Past Medical History: No medical history Social history: lives with family, smoking Family history: no significant family history Medications and Allergies Allergies Allergy/AdvReac Type Severity Reaction Status Date / Time No Known Allergies Allergy Unverified 05/20/21 15:44 Active Meds: Active Medications Acetaminophen (Acetaminophen 325 Mg Tab) 650 mg PO Q4H PRN PRN Reason: Pain MILD(1-3)/Fever >100.5/SOL Last Admin: 05/21/21 02:04 Dose: 650 mg Documented by: Hydrocodone Bitart/Acetaminophen (Hydrocodone/Acetaminophen 5-325 Mg Tab) 2 each PO Q6H PRN PRN Reason: Pain, Moderate (4-6) Last Admin: 05/21/21 11:30 Dose: 2 each Documented by: Al Hydrox/Mg Hydrox/Simethicone (Alum-Mag Hydroxide-Simethicone [id number]/5ml Oral Liqd 30 Ml) 30 ml PO Q4H PRN PRN Reason: Indigestion Famotidine (Famotidine 20 Mg/2 Ml Inj) 20 mg IV BID LINDA Last Admin: 05/21/21 09:11 Dose: 20 mg Documented by: Heparin Sodium (Porcine) (Heparin 10,000 Units/10 Ml Vial) 3,100 unit 40 unit/kg (3100 unit) IV Q6H PRN PRN Reason: Anti-Xa Assay < 0.1 units/ml Heparin Sodium/Sodium Chloride (Heparin/ 0.45% Nacl-25,000 Unit/500 Ml) 25,000 unit in 500 mls @ 23 mls/hr IV TITR LINDA; Protocol Last Titration: 05/21/21 07:51 Dose: 1,250 units/hr, 25 mls/hr Documented by: Magnesium Hydroxide (Magnesium Hydroxide (Mom) Oral Liqd Udc) 30 ml PO Q4H PRN PRN Reason: Constipation Metoclopramide HCl (Metoclopramide 10 Mg/2 Ml Inj) 10 mg IV Q6H PRN PRN Reason: Nausea And Vomiting Naloxone HCl (Naloxone 0.4 Mg/1 Ml Inj) 0.1 mg IV Q2MIN PRN PRN Reason: Res Rate </= 8 or 02 SAT < 92% Ondansetron HCl (Ondansetron 4 Mg/2 Ml Inj) 4 mg IV Q8H PRN PRN Reason: Nausea And Vomiting Senna (Sennosides 8.6 Mg Tab) 8.6 mg PO Q12HR PRN PRN Reason: Constipation Sodium Chloride (Sodium Chloride 0.9% 10 Ml Flush Syringe) 10 ml IV PRN PRN PRN Reason: LINE FLUSH Review of Systems All systems: negative Cardiovascular: chest pain Physical Examination Vital signs: Vital Signs Temp Pulse Resp BP Pulse Ox 98.4 F 60 18 144/90 100 05/20/21 15:35 05/20/21 15:35 05/20/21 15:35 05/20/21 15:35 05/20/21 15:35 General appearance: no acute distress Eyes: non-icteric ENT: oropharynx moist Neck: supple, no JVD Effort: normal Ascultation: Bilateral: clear Percussion: Bilateral: not dull Cardiovascular: regular rate and rhythm Gastrointestinal: normoactive bowel sounds, soft, non-tender Integumentary: normal Extremities: no cyanosis, no edema, pink and warm Musculoskeletal: no deformities Gait: other (Not tested) normal mental status, non-focal exam mood appropriate Results - Laboratory Findings CBC and BMP: 05/21/21 05:29 05/21/21 05:29 PT/INR, D-dimer PT 14.3 Sec. (12.2-14.9) 05/20/21 22:02 INR 1.05 (0.87-1.13) 05/20/21 22:02 D-Dimer 1092.37 ng/mlDDU (0-234) H 05/20/21 17:30 Abnormal lab findings: Abnormal Labs 05/20/21 05/20/21 05/20/21 16:08 16:08 17:30 RBC 5.44 H Hgb 16.1 H Hct 47.1 H MCHC [place] % (Auto) 7.7 H [place] # (Auto) Seg Neutrophils % 75.8 H Seg Neutrophils # 8.3 H D-Dimer 1092.37 H Heparin Anti-Xa Level Sodium 135 L BUN Glucose 114 H Alkaline Phosphatase 131 H Albumin 05/21/21 05/21/21 05/21/21 05:29 05:29 05:29 RBC Hgb Hct MCHC 35 H [place] % (Auto) 9.2 H [place] # (Auto) 0.9 H Seg Neutrophils % Seg Neutrophils # D-Dimer Heparin Anti-Xa Level 0.21 L Sodium BUN 8 L Glucose Alkaline Phosphatase Albumin 3.4 L - Diagnostic Findings CT scan - chest: image reviewed (CTA chest suggest possible pulmonary embolism. Suboptimal bolus time) Assessment and Plan Impression: Pulmonary embolism with possible pulmonary infarct on the left side. Recommendation: Agree with heparin and converting it to oral Eliquis prior to discharge Agree with echocardiogram to evaluate right heart function Will order lower extremity venous Doppler studies to rule out DVT.
[2021-05-21] MEDS: HEPARIN/ 0.45% NACL DRIP 25,000 UNIT/500 ML BAG IV SCH (18:10)
--- NOTE | 2021-05-21 21:03 | Consultation ---
History of Present Illness - Reason for Consult Consult date: 05/21/21 Pulmonary Embolus - History of Present Illness The patient is a 60-year-old male who presented to the emergency department with complaints of shortness of breath and left chest and back pain. He states that on prior to his presentation he had sudden pain with shortness of breath at approximately 2 AM while watching TV. He denies having any prior history of shortness of breath or chest pain. He denies any recent leg swelling, prolonged bedrest, long trips, or recent surgery. He denies any unwanted weight loss. He denies any history of bloody bowel movements or changes in his bowel habits. He does not know of any family history of blood clots. He has no additional complaints at this time. 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) Social history: lives with family, smoking Family history: no significant family history Medications and Allergies Allergies Allergy/AdvReac Type Severity Reaction Status Date / Time No Known Allergies Allergy Unverified 05/20/21 15:44 Home Medications Medication Instructions Recorded Confirmed Last Taken Type No Known Home Medications [No 05/21/21 05/21/21 Unknown History Reported Home Medications] Active Meds: Active Medications Acetaminophen (Acetaminophen 325 Mg Tab) 650 mg PO Q4H PRN PRN Reason: Pain MILD(1-3)/Fever >100.5/SOL Last Admin: 05/21/21 02:04 Dose: 650 mg Documented by: Hydrocodone Bitart/Acetaminophen (Hydrocodone/Acetaminophen 5-325 Mg Tab) 2 each PO Q6H PRN PRN Reason: Pain, Moderate (4-6) Last Admin: 05/21/21 11:30 Dose: 2 each Documented by: Al Hydrox/Mg Hydrox/Simethicone (Alum-Mag Hydroxide-Simethicone [id number]/5ml Oral Liqd 30 Ml) 30 ml PO Q4H PRN PRN Reason: Indigestion Famotidine (Famotidine 20 Mg/2 Ml Inj) 20 mg IV BID LINDA Last Admin: 05/21/21 09:11 Dose: 20 mg Documented by: Heparin Sodium (Porcine) (Heparin 10,000 Units/10 Ml Vial) 3,100 unit 40 unit/kg (3100 unit) IV Q6H PRN PRN Reason: Anti-Xa Assay < 0.1 units/ml Heparin Sodium/Sodium Chloride (Heparin/ 0.45% Nacl-25,000 Unit/500 Ml) 25,000 unit in 500 mls @ 23 mls/hr IV TITR LINDA; Protocol Last Admin: 05/21/21 18:10 Dose: 1,250 units/hr, 25 mls/hr Documented by: Magnesium Hydroxide (Magnesium Hydroxide (Mom) Oral Liqd Udc) 30 ml PO Q4H PRN PRN Reason: Constipation Metoclopramide HCl (Metoclopramide 10 Mg/2 Ml Inj) 10 mg IV Q6H PRN PRN Reason: Nausea And Vomiting Naloxone HCl (Naloxone 0.4 Mg/1 Ml Inj) 0.1 mg IV Q2MIN PRN PRN Reason: Res Rate </= 8 or 02 SAT < 92% Ondansetron HCl (Ondansetron 4 Mg/2 Ml Inj) 4 mg IV Q8H PRN PRN Reason: Nausea And Vomiting Senna (Sennosides 8.6 Mg Tab) 8.6 mg PO Q12HR PRN PRN Reason: Constipation Sodium Chloride (Sodium Chloride 0.9% 10 Ml Flush Syringe) 10 ml IV PRN PRN PRN Reason: LINE FLUSH Review of Systems All systems: negative Exam - Constitutional Vitals: Temp Pulse Resp BP Pulse Ox 99.4 F 56 L 18 124/74 97 05/21/21 18:59 05/21/21 18:59 05/21/21 18:59 05/21/21 18:59 05/21/21 18:59 General appearance: Present: no acute distress - Respiratory Respiratory effort: normal - Cardiovascular Rhythm: regular - Extremities Extremities: no ischemia, pulses intact (Palpable pedal pulses bilaterally), No edema - Abdominal General gastrointestinal: Present: soft, non-tender, non-distended, other (Palpable abdominal aorta however unable to estimate the size) Results - Labs CBC & Chem 7: 05/21/21 05:29 05/21/21 05:29 Labs: Abnormal lab results 05/21/21 05/21/21 05/21/21 Range/Units 05:29 05:29 05:29 MCHC 35 H (32-34) % [place] % (Auto) 9.2 H (0.0-7.3) % [place] # (Auto) 0.9 H (0.0-0.8) K/mm3 Heparin Anti-Xa Level 0.21 L (0.3-0.7) U.I./ml BUN 8 L (9-20) mg/dL Albumin 3.4 L (3.9-5) g/dL - Imaging and Cardiology CT scan - chest: image reviewed (Evidence of left lung pulmonary infarct however the timing of the bolus sheath was delayed but there was no evidence of an embolus in the main pulmonary arteries or any obvious thrombus within the segmental branches) Assessment and Plan The patient is a 60-year-old male who presented to the emergency department with complaints of shortness of breath associated with left chest and back pain. His CTA was inconclusive however there is evidence of left lower pulmonary infarct. His pulmonary perfusion study suggest possible PE. He also has an elevated D- dimer and these findings would suggest that the patient has a pulmonary embolus. He does not relate history of significant edema however the patient is clinically blind and may not appreciate any swelling that may have been present. I agree with the heparin drip and conversion to Eliquis. At this point I do not believe he requires vascular surgery intervention as he has no obvious signs of right heart strain. The patient does not provide a history of a provoked PE so I will recommend a hypercoagulable work-up to determine the length of treatment for anticoagulation. In addition to treatment for his pulmonary embolus his proximal abdominal aorta appeared ectatic with mural thrombus which suggest he may have an infrarenal aneurysm. Would recommend an abdominal aortic ultrasound to evaluate the size of the aorta for aneurysmal dilatation. I discussed this with the patient expressed understanding and agrees with the plan.
[2021-05-22 05:55] LABS: Hematocrit 40.5 % (35.5-45.6); Hemoglobin 13.9 gm/dl (11.8-15.2)
--- NOTE | 2021-05-22 08:47 | Progress Note ---
Assessment and Plan Assessment and plan: 60-year-old male presented through the emergency department with chest pain. CTA of the chest/pulmonary perfusion imaging confirmed acute pulmonary embolus. Patient was admitted with diagnosis of acute pulmonary embolus and placed on IV heparin for anticoagulation. Acute pulmonary embolism/pulmonary infarct Chest pain. Etiology secondary to #1 Marijuana use 05/21/2021. Patient will be maintained on IV heparin drip for now. We will transition to Eliquis. Check echocardiogram to rule out right heart strain. Vascular surgery consultation 05/22/2021. Patient will be transition to Eliquis today. Vascular surgery reports that patient has proximal abdominal aorta that appears ectatic with m ural thrombus which suggests he may have an infrarenal aneurysm. Vascular surgery recommends an abdominal aortic ultrasound to evaluate the size of the aorta for aneurysmal dilatation. Consult hematology for hypercoagulable work-up given unprovoked PE History Interval history: This is a 60-year-old male who presents emergency room with chest pain. Patient had a CTA was inconclusive and then had a nuclear scan and it shows a pulmonary infarct and PE. Patient placed on a heparin drip with heparin protocol. ED work-up showed WBC 11.0, hemoglobin 16.1, platelet 239, D-dimer 1092.37, sodium 135, potassium 4.1, serum glucose 114, troponin negative. Patient seen in the ED alert oriented x3 he reports chest pain and difficulty breathing CT of the chest was done patient was positive for pulmonary embolus Hospitalist Physical - Constitutional Vitals: Temp Pulse Resp BP Pulse Ox 99.5 F 63 18 139/70 95 05/22/21 08:11 05/22/21 08:11 05/22/21 08:11 05/22/21 08:11 05/22/21 08:11 General appearance: Present: no acute distress - EENT Eyes: Present: PERRL, EOM intact ENT: hearing intact, clear oral mucosa, dentition normal - Neck Neck: Present: supple, normal ROM - Respiratory Respiratory effort: normal Respiratory: bilateral: CTA - Cardiovascular Rhythm: regular Heart Sounds: Present: S1 & S2. Absent: gallop, rub - Extremities Extremities: no ischemia, No edema, Full ROM - Abdominal General gastrointestinal: soft, non-tender, non-distended, normal bowel sounds - Integumentary Integumentary: Present: clear, warm, dry - Neurologic Neurologic: CNII-XII intact, moves all extremities HEART Score - HEART Score EKG: Normal Age: 45-65 Risk factors: 1-2 risk factors Troponin: Troponin T < 0.010 ng/mL (0.00-0.029) 05/20/21 18:24 Troponin: < normal limit Results - Labs CBC & Chem 7: 05/22/21 05:15 05/21/21 05:29 Labs: Laboratory Last Values WBC 9.3 K/mm3 (4.5-11.0) 05/21/21 05:29 RBC 4.87 M/mm3 (3.65-5.03) 05/21/21 05:29 Hgb 13.9 gm/dl (11.8-15.2) 05/22/21 05:15 Hct 40.5 % (35.5-45.6) 05/22/21 05:15 MCV 87 fl (84-94) 05/21/21 05:29 MCH 30 pg (28-32) 05/21/21 05:29 MCHC 35 % (32-34) H 05/21/21 05:29 RDW 14.9 % (13.2-15.2) 05/21/21 05:29 Plt Count 196 K/mm3 (140-440) 05/22/21 05:15 Lymph % (Auto) 21.5 % (13.4-35.0) 05/21/21 05:29 [place] % (Auto) 9.2 % (0.0-7.3) H 05/21/21 05:29 Eos % (Auto) 0.7 % (0.0-4.3) 05/21/21 05:29 Baso % (Auto) 0.5 % (0.0-1.8) 05/21/21 05:29 Lymph # (Auto) 2.0 K/mm3 (1.2-5.4) 05/21/21 05:29 [place] # (Auto) 0.9 K/mm3 (0.0-0.8) H 05/21/21 05:29 Eos # (Auto) 0.1 K/mm3 (0.0-0.4) 05/21/21 05:29 Baso # (Auto) 0.0 K/mm3 (0.0-0.1) 05/21/21 05:29 Seg Neutrophils % 68.1 % (40.0-70.0) 05/21/21 05:29 Seg Neutrophils # 6.3 K/mm3 (1.8-7.7) 05/21/21 05:29 PT 14.3 Sec. (12.2-14.9) 05/20/21 22:02 INR 1.05 (0.87-1.13) 05/20/21 22:02 APTT 30.3 Sec. (24.2-36.6) 05/20/21 22:02 D-Dimer 1092.37 ng/mlDDU (0-234) H 05/20/21 17:30 Heparin Anti-Xa Level 0.49 U.I./ml (0.3-0.7) 05/21/21 14:05 Sodium 137 mmol/L (137-145) 05/21/21 05:29 Potassium 3.6 mmol/L (3.6-5.0) 05/21/21 05:29 Chloride 103.6 mmol/L (98-107) 05/21/21 05:29 Carbon Dioxide 23 mmol/L (22-30) 05/21/21 05:29 Anion Gap 14 mmol/L 05/21/21 05:29 BUN 8 mg/dL (9-20) L 05/21/21 05:29 Creatinine 0.9 mg/dL (0.8-1.3) 05/21/21 05:29 Estimated GFR > 60 ml/min 05/21/21 05:29 BUN/Creatinine Ratio 9 % 05/21/21 05:29 Glucose 78 mg/dL (75-100) 05/21/21 05:29 Hemoglobin A1c 5.6 % (4-6) 05/20/21 16:08 Calcium 8.6 mg/dL (8.4-10.2) 05/21/21 05:29 Total Bilirubin 0.50 mg/dL (0.1-1.2) 05/21/21 05:29 AST 15 units/L (5-40) 05/21/21 05:29 ALT 18 units/L (7-56) 05/21/21 05:29 Alkaline Phosphatase 120 units/L (35-129) 05/21/21 05:29 Troponin T < 0.010 ng/mL (0.00-0.029) 05/20/21 18:24 Total Protein 7.1 g/dL (6.3-8.2) 05/21/21 05:29 Albumin 3.4 g/dL (3.9-5) L 05/21/21 05:29 Albumin/Globulin Ratio 0.9 % 05/21/21 05:29 Malhotra/IV: Voiding Method Urinal Active Medications - Current Medications Current Medications: Generic Name Dose Route Start Last Admin Trade Name Freq PRN Reason Stop Dose Admin Acetaminophen 650 mg 05/20/21 22:54 05/21/21 02:04 Acetaminophen 325 Mg Tab PO 650 mg Q4H PRN Administration Pain MILD(1-3)/Fever >100.5/SOL Hydrocodone Bitart/Acetaminophen 2 each 05/20/21 22:54 05/21/21 21:41 Hydrocodone/Acetaminophen 5-325 Mg Tab PO 2 each Q6H PRN Administration Pain, Moderate (4-6) Al Hydrox/Mg Hydrox/Simethicone 30 ml 05/20/21 22:54 Alum-Mag Hydroxide-Simethicone [id number]/5ml Oral Liqd 30 Ml PO Q4H PRN Indigestion Famotidine 20 mg 05/21/21 10:00 05/21/21 21:41 Famotidine 20 Mg/2 Ml Inj IV 20 mg BID LINDA Administration Heparin Sodium (Porcine) 3,100 unit 05/20/21 21:52 Heparin 10,000 Units/10 Ml Vial 40 unit/kg (3100 unit) IV Q6H PRN Anti-Xa Assay < 0.1 units/ml Heparin Sodium/Sodium Chloride 25,000 unit in 500 mls @ 23 mls/hr 05/20/21 22:00 05/21/21 18:10 Heparin/ 0.45% Nacl-25,000 Unit/500 Ml IV 1,250 units/hr TITR LINDA 25 mls/hr Administration Protocol 1,150 UNITS/HR Magnesium Hydroxide 30 ml 05/20/21 22:54 Magnesium Hydroxide (Mom) Oral Liqd Udc PO Q4H PRN Constipation Metoclopramide HCl 10 mg 05/20/21 22:54 Metoclopramide 10 Mg/2 Ml Inj IV Q6H PRN Nausea And Vomiting Naloxone HCl 0.1 mg 05/20/21 22:54 Naloxone 0.4 Mg/1 Ml Inj IV Q2MIN PRN Res Rate </= 8 or 02 SAT < 92% Ondansetron HCl 4 mg 05/20/21 22:54 Ondansetron 4 Mg/2 Ml Inj IV Q8H PRN Nausea And Vomiting Senna 8.6 mg 05/20/21 22:54 Sennosides 8.6 Mg Tab PO Q12HR PRN Constipation Sodium Chloride 10 ml 05/20/21 22:54 05/21/21 21:41 Sodium Chloride 0.9% 10 Ml Flush Syringe IV 10 ml PRN PRN Administration LINE FLUSH
[2021-05-22] MEDS: HYDROcodone/ACETAMINOPHEN 5-325 MG TAB PO PRN ×2 (09:10→14:45)
[2021-05-22] MEDS: APIXABAN 5 MG TAB PO SCH ×2 (09:36→21:49)
[2021-05-22] MEDS: FAMOTIDINE 20 MG/2 ML INJ IV SCH (09:36)
--- NOTE | 2021-05-22 12:42 | Progress Note ---
Assessment and Plan Impression: Pulmonary embolism with possible pulmonary infarct on the left side. Recommendation: Agree with converting to oral Eliquis prior to discharge Agree with echocardiogram to evaluate right heart function Will order lower extremity venous Doppler studies to rule out DVT. Await venous Doppler studies Possibly discharge tomorrow on Eliquis Subjective Date of service: 05/22/21 Interval history: Patient denied any new complaint. Chest/back pain seems to be gradually resolving patient is now on Eliquis Objective Vital Signs - 12hr 05/22/21 05/22/21 05/22/21 03:00 03:50 08:11 Temperature 99.0 F 99.5 F Pulse Rate 62 62 63 Respiratory 18 18 Rate Blood Pressure 152/79 139/70 O2 Sat by Pulse 97 95 Oximetry 05/22/21 05/22/21 05/22/21 11:00 11:28 12:06 Temperature 99.3 F Pulse Rate 62 70 Respiratory 18 Rate Blood Pressure 147/83 O2 Sat by Pulse 94 97 Oximetry Constitutional: no acute distress Eyes: non-icteric ENT: oropharynx moist Neck: supple, no JVD Effort: normal Ascultation: Bilateral: clear Percussion: Bilateral: not dull Cardiovascular: regular rate and rhythm Gastrointestinal: normoactive bowel sounds, soft, non-tender Integumentary: normal Extremities: no cyanosis, no edema, pink and warm Neurologic: normal mental status, non-focal exam Psychiatric: mood appropriate CBC and BMP: 05/22/21 05:15 05/21/21 05:29 ABG, PT/INR, D-dimer: PT/INR, D-dimer PT 14.3 Sec. (12.2-14.9) 05/20/21 22:02 INR 1.05 (0.87-1.13) 05/20/21 22:02 D-Dimer 1092.37 ng/mlDDU (0-234) H 05/20/21 17:30 Abnormal lab findings: Abnormal Labs 05/20/21 05/20/21 05/20/21 16:08 16:08 17:30 RBC 5.44 H Hgb 16.1 H Hct 47.1 H MCHC [place] % (Auto) 7.7 H [place] # (Auto) Seg Neutrophils % 75.8 H Seg Neutrophils # 8.3 H D-Dimer 1092.37 H Heparin Anti-Xa Level Sodium 135 L BUN Glucose 114 H Alkaline Phosphatase 131 H Albumin 05/21/21 05/21/21 05/21/21 05:29 05:29 05:29 RBC Hgb Hct MCHC 35 H [place] % (Auto) 9.2 H [place] # (Auto) 0.9 H Seg Neutrophils % Seg Neutrophils # D-Dimer Heparin Anti-Xa Level 0.21 L Sodium BUN 8 L Glucose Alkaline Phosphatase Albumin 3.4 L
[2021-05-22 15:34] LABS: Hematocrit 42.3 % (35.5-45.6); Hemoglobin 14.6 gm/dl (11.8-15.2); Mean Corpuscular HGB Conc 34 % (32-34); Mean Corpuscular Volume 87 fl (84-94); Platelet Count 209 K/mm3 (140-440); Red Blood Count 4.86 M/mm3 (3.65-5.03); Red Cell Distribution Width 14.6 % (13.2-15.2)
[2021-05-22 15:46] LABS: INR 1.29 (0.87-1.13)
[2021-05-22 15:47] LABS: Partial Thromboplastin Time 36.5 Sec. (24.2-36.6)
[2021-05-22] MEDS: FAMOTIDINE 20 MG TAB PO SCH (21:49)
[2021-05-23] MEDS: HYDROcodone/ACETAMINOPHEN 5-325 MG TAB PO PRN (05:21)
--- NOTE | 2021-05-23 08:25 | Progress Note ---
Assessment and Plan Assessment and plan: 60-year-old male presented through the emergency department with chest pain. CTA of the chest/pulmonary perfusion imaging confirmed acute pulmonary embolus. Patient was admitted with diagnosis of acute pulmonary embolus and placed on IV heparin for anticoagulation. Acute pulmonary embolism/pulmonary infarct Chest pain. Etiology secondary to #1 Marijuana use 05/21/2021. Patient will be maintained on IV heparin drip for now. We will transition to Eliquis. Check echocardiogram to rule out right heart strain. Vascular surgery consultation 05/22/2021. Patient will be transition to Eliquis today. Vascular surgery reports that patient has proximal abdominal aorta that appears ectatic with m ural thrombus which suggests he may have an infrarenal aneurysm. Vascular surgery recommends an abdominal aortic ultrasound to evaluate the size of the aorta for aneurysmal dilatation. Consult hematology for hypercoagulable work-up given unprovoked PE 05/23/2021. Follow-up abdominal aortic ultrasound to evaluate aorta for aneurysmal dilatation. Hematology consulted for hypercoagulable work-up given unprovoked PE. Continue Eliquis. History Interval history: This is a 60-year-old male who presents emergency room with chest pain. Patient had a CTA was inconclusive and then had a nuclear scan and it shows a pulmonary infarct and PE. Patient placed on a heparin drip with heparin protocol. ED work-up showed WBC 11.0, hemoglobin 16.1, platelet 239, D-dimer 1092.37, sodium 135, potassium 4.1, serum glucose 114, troponin negative. Patient seen in the ED alert oriented x3 he reports chest pain and difficulty breathing CT of the chest was done patient was positive for pulmonary embolus Hospitalist Physical - Constitutional Vitals: Temp Pulse Resp BP Pulse Ox 98.4 F 65 20 150/91 98 05/23/21 04:50 05/23/21 04:50 05/23/21 04:50 05/23/21 04:50 05/23/21 04:50 General appearance: Present: no acute distress - EENT Eyes: Present: PERRL, EOM intact ENT: hearing intact, clear oral mucosa, dentition normal - Neck Neck: Present: supple, normal ROM - Respiratory Respiratory effort: normal Respiratory: bilateral: CTA - Cardiovascular Rhythm: regular Heart Sounds: Present: S1 & S2. Absent: gallop, rub - Extremities Extremities: no ischemia, No edema, Full ROM - Abdominal General gastrointestinal: soft, non-tender, non-distended, normal bowel sounds - Integumentary Integumentary: Present: clear, warm, dry - Neurologic Neurologic: CNII-XII intact, moves all extremities HEART Score - HEART Score EKG: Normal Age: 45-65 Risk factors: 1-2 risk factors Troponin: Troponin T < 0.010 ng/mL (0.00-0.029) 05/20/21 18:24 Troponin: < normal limit Results - Labs CBC & Chem 7: 05/22/21 14:52 05/22/21 14:52 Labs: Laboratory Last Values WBC 8.5 K/mm3 (4.5-11.0) 05/22/21 14:52 RBC 4.86 M/mm3 (3.65-5.03) 05/22/21 14:52 Hgb 14.6 gm/dl (11.8-15.2) 05/22/21 14:52 Hct 42.3 % (35.5-45.6) 05/22/21 14:52 MCV 87 fl (84-94) 05/22/21 14:52 MCH 30 pg (28-32) 05/22/21 14:52 MCHC 34 % (32-34) 05/22/21 14:52 RDW 14.6 % (13.2-15.2) 05/22/21 14:52 Plt Count 209 K/mm3 (140-440) 05/22/21 14:52 Lymph % (Auto) 21.5 % (13.4-35.0) 05/21/21 05:29 [place] % (Auto) 9.2 % (0.0-7.3) H 05/21/21 05:29 Eos % (Auto) 0.7 % (0.0-4.3) 05/21/21 05:29 Baso % (Auto) 0.5 % (0.0-1.8) 05/21/21 05:29 Lymph # (Auto) 2.0 K/mm3 (1.2-5.4) 05/21/21 05:29 [place] # (Auto) 0.9 K/mm3 (0.0-0.8) H 05/21/21 05:29 Eos # (Auto) 0.1 K/mm3 (0.0-0.4) 05/21/21 05:29 Baso # (Auto) 0.0 K/mm3 (0.0-0.1) 05/21/21 05:29 Seg Neutrophils % 68.1 % (40.0-70.0) 05/21/21 05:29 Seg Neutrophils # 6.3 K/mm3 (1.8-7.7) 05/21/21 05:29 PT 16.7 Sec. (12.2-14.9) H 05/22/21 14:52 INR 1.29 (0.87-1.13) H 05/22/21 14:52 APTT 36.5 Sec. (24.2-36.6) 05/22/21 14:52 D-Dimer 1092.37 ng/mlDDU (0-234) H 05/20/21 17:30 Heparin Anti-Xa Level 0.49 U.I./ml (0.3-0.7) 05/21/21 14:05 Sodium 137 mmol/L (137-145) 05/21/21 05:29 Potassium 3.6 mmol/L (3.6-5.0) 05/21/21 05:29 Chloride 103.6 mmol/L (98-107) 05/21/21 05:29 Carbon Dioxide 23 mmol/L (22-30) 05/21/21 05:29 Anion Gap 14 mmol/L 05/21/21 05:29 BUN 8 mg/dL (9-20) L 05/21/21 05:29 Creatinine 0.8 mg/dL (0.8-1.3) 05/22/21 14:52 Estimated GFR > 60 ml/min 05/22/21 14:52 BUN/Creatinine Ratio 9 % 05/21/21 05:29 Glucose 78 mg/dL (75-100) 05/21/21 05:29 Hemoglobin A1c 5.6 % (4-6) 05/20/21 16:08 Calcium 8.6 mg/dL (8.4-10.2) 05/21/21 05:29 Total Bilirubin 0.50 mg/dL (0.1-1.2) 05/21/21 05:29 AST 15 units/L (5-40) 05/21/21 05:29 ALT 18 units/L (7-56) 05/21/21 05:29 Alkaline Phosphatase 120 units/L (35-129) 05/21/21 05:29 Troponin T < 0.010 ng/mL (0.00-0.029) 05/20/21 18:24 Total Protein 7.1 g/dL (6.3-8.2) 05/21/21 05:29 Albumin 3.4 g/dL (3.9-5) L 05/21/21 05:29 Albumin/Globulin Ratio 0.9 % 05/21/21 05:29 Malhotra/IV: Voiding Method Toilet Active Medications - Current Medications Current Medications: Generic Name Dose Route Start Last Admin Trade Name Freq PRN Reason Stop Dose Admin Acetaminophen 650 mg 05/20/21 22:54 05/21/21 02:04 Acetaminophen 325 Mg Tab PO 650 mg Q4H PRN Administration Pain MILD(1-3)/Fever >100.5/SOL Hydrocodone Bitart/Acetaminophen 2 each 05/20/21 22:54 05/23/21 05:21 Hydrocodone/Acetaminophen 5-325 Mg Tab PO 2 each Q6H PRN Administration Pain, Moderate (4-6) Al Hydrox/Mg Hydrox/Simethicone 30 ml 05/20/21 22:54 Alum-Mag Hydroxide-Simethicone [phone]/5ml Oral Liqd 30 Ml PO Q4H PRN Indigestion Apixaban 10 mg 05/22/21 10:00 05/22/21 21:49 Apixaban 5 Mg Tab PO 05/28/21 22:01 10 mg Q12HR LINDA Administration Protocol Famotidine 20 mg 05/22/21 22:00 05/22/21 21:49 Famotidine 20 Mg Tab PO 20 mg BID LINDA Administration Magnesium Hydroxide 30 ml 05/20/21 22:54 05/22/21 17:58 Magnesium Hydroxide (Mom) Oral Liqd Udc PO 30 ml Q4H PRN Administration Constipation Metoclopramide HCl 10 mg 05/20/21 22:54 Metoclopramide 10 Mg/2 Ml Inj IV Q6H PRN Nausea And Vomiting Naloxone HCl 0.1 mg 05/20/21 22:54 Naloxone 0.4 Mg/1 Ml Inj IV Q2MIN PRN Res Rate </= 8 or 02 SAT < 92% Ondansetron HCl 4 mg 05/20/21 22:54 Ondansetron 4 Mg/2 Ml Inj IV Q8H PRN Nausea And Vomiting Senna 8.6 mg 05/20/21 22:54 Sennosides 8.6 Mg Tab PO Q12HR PRN Constipation Sodium Chloride 10 ml 05/20/21 22:54 05/21/21 21:41 Sodium Chloride 0.9% 10 Ml Flush Syringe IV 10 ml PRN PRN Administration LINE FLUSH
--- NOTE | 2021-05-23 09:32 | Hem/Onc Consultation ---
History of Present Illness - History of Present Illness heme prelim consult data review only 60yo previously healthy man, now with PE L flank pain, presumed pulm infarction received IV heparin-->eliquis initiation data reviewed below IMP: presumed clotting tendency, now with PE REC: OK to continue eliquis starter pack OK to plan discharge from heme perspective steroid pulse for pulm infarct pain clot tendency mutation testing will try for outpt telemed heme f/u Laboratory Last Values WBC 8.5 K/mm3 (4.5-11.0) 05/22/21 14:52 Hgb 14.6 gm/dl (11.8-15.2) 05/22/21 14:52 Hct 42.3 % (35.5-45.6) 05/22/21 14:52 MCV 87 fl (84-94) 05/22/21 14:52 Plt Count 209 K/mm3 (140-440) 05/22/21 14:52 APTT 36.5 Sec. (24.2-36.6) 05/22/21 14:52 D-Dimer 1092.37 ng/mlDDU (0-234) H 05/20/21 17:30 Creatinine 0.8 mg/dL (0.8-1.3) 05/22/21 14:52 Albumin/Globulin Ratio 0.9 % 05/21/21 05:29 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) Social history: lives with family, smoking Family history: no significant family history Medications and Allergies Allergies Allergy/AdvReac Type Severity Reaction Status Date / Time No Known Allergies Allergy Unverified 05/20/21 15:44 Home Medications Medication Instructions Recorded Confirmed Last Taken Type No Known Home Medications [No 05/21/21 05/21/21 Unknown History Reported Home Medications] Active Meds: Active Medications Acetaminophen (Acetaminophen 325 Mg Tab) 650 mg PO Q4H PRN PRN Reason: Pain MILD(1-3)/Fever >100.5/SOL Last Admin: 05/21/21 02:04 Dose: 650 mg Documented by: Hydrocodone Bitart/Acetaminophen (Hydrocodone/Acetaminophen 5-325 Mg Tab) 2 each PO Q6H PRN PRN Reason: Pain, Moderate (4-6) Last Admin: 05/23/21 05:21 Dose: 2 each Documented by: Al Hydrox/Mg Hydrox/Simethicone (Alum-Mag Hydroxide-Simethicone [phone]/5ml Oral Liqd 30 Ml) 30 ml PO Q4H PRN PRN Reason: Indigestion Apixaban (Apixaban 5 Mg Tab) 10 mg PO Q12HR [facility]; Protocol Stop: 05/28/21 22:01 Last Admin: 05/22/21 21:49 Dose: 10 mg Documented by: Famotidine (Famotidine 20 Mg Tab) 20 mg PO BID LINDA Last Admin: 05/22/21 21:49 Dose: 20 mg Documented by: Magnesium Hydroxide (Magnesium Hydroxide (Mom) Oral Liqd Udc) 30 ml PO Q4H PRN PRN Reason: Constipation Last Admin: 05/22/21 17:58 Dose: 30 ml Documented by: Metoclopramide HCl (Metoclopramide 10 Mg/2 Ml Inj) 10 mg IV Q6H PRN PRN Reason: Nausea And Vomiting Naloxone HCl (Naloxone 0.4 Mg/1 Ml Inj) 0.1 mg IV Q2MIN PRN PRN Reason: Res Rate </= 8 or 02 SAT < 92% Ondansetron HCl (Ondansetron 4 Mg/2 Ml Inj) 4 mg IV Q8H PRN PRN Reason: Nausea And Vomiting Senna (Sennosides 8.6 Mg Tab) 8.6 mg PO Q12HR PRN PRN Reason: Constipation Sodium Chloride (Sodium Chloride 0.9% 10 Ml Flush Syringe) 10 ml IV PRN PRN PRN Reason: LINE FLUSH Last Admin: 05/21/21 21:41 Dose: 10 ml Documented by: Exam - Constitutional Vitals: Last Vital Signs Temp 98.6 F 05/23/21 07:47 Pulse 57 L 05/23/21 08:34 Resp 19 05/23/21 07:47 BP 139/80 05/23/21 07:47 Pulse Ox 92 05/23/21 07:47 Results - Labs lab Results: Laboratory Results - last 24 hr 05/22/21 05/22/21 05/22/21 14:52 14:52 14:52 WBC 8.5 RBC 4.86 Hgb 14.6 Hct 42.3 MCV 87 MCH 30 MCHC 34 RDW 14.6 Plt Count 209 PT 16.7 H INR 1.29 H APTT 36.5 Creatinine 0.8 Estimated GFR > 60
[2021-05-23] MEDS ORDERED: methylPREDNISolone Sod Succinate 125 MG/2 ML INJ IV NR (10:00)
[2021-05-23] MEDS: APIXABAN 5 MG TAB PO SCH ×2 (10:34→22:30)
[2021-05-23] MEDS: FAMOTIDINE 20 MG TAB PO SCH ×2 (10:35→22:31)
--- NOTE | 2021-05-23 11:11 | Vascular Lab Report ---
VL AORTA/IVC/ILIAC DUPLEX LIMITED HISTORY: Evaluate for abdominal aortic aneurysm, mural thrombus and aorta on CT scan TECHNIQUE: Grayscale ultrasound with color Doppler and spectral Doppler imaging. COMPARISON: No previous exam of the abdomen. Correlation is made with CTA of the chest 05/20/2021. FINDINGS: The proximal, mid and distal aorta measure a maximum diameter of 3.1 cm, 3.1 cm and 2.4 cm. There are mild to moderate atherosclerotic plaques in the abdominal aorta but no aneurysm is detected. Previou sly described mural thrombus in the aorta seen on recent CTA chest is not clearly demonstrated on ult rasound. There is no evidence for dissection or stenosis. Peak systolic velocity in the proximal, mid and distal aorta measure 53, 43 and 71 cm/s respectively. The right common iliac artery measures 1.4 cm in diameter with max velocity measuring 106 cm/s. The left common iliac artery measures 1.4 cm with max velocity measuring 121 cm/s. The proximal SMA appears widely patent with max velocity measuring 125 cm/s. Velocities at the celiac trunk are mildly elevated at 237 cm/s. The celiac trunk appears mildly tortu ous on ultrasound. The celiac axis appears widely patent on recent CTA chest. This is probably artifa ctual due to tortuosity. IMPRESSION: Mild to moderate atherosclerotic disease is identified in the abdominal aorta but no aneurysm. See ab ove. DUPLEX DOPPLER LOWER EXTREMITY VEINS, BILATERAL INDICATION: Recently diagnosed pulmonary embolism, evaluate for DVT TECHNIQUE: Duplex doppler imaging was performed through the veins of both lower extremities using ve nous compression and other maneuvers. COMPARISON: No relevant prior imaging study available. FINDINGS: Right Common femoral vein: Negative. Right Superficial femoral vein: Negative. Right Popliteal vein: Negative. Right Calf veins: Negative. Left Common femoral vein: Negative. Left Superficial femoral vein: Negative. Left Popliteal vein: Negative. Left Calf veins: Negative. Additional findings: None. IMPRESSION: No sonographic evidence for DVT in either lower extremity. Signer Name: Valente Wiggins Jr, MD Signed: 05/23/2021 11:07 AM Workstation Name: [id number]
--- NOTE | 2021-05-23 11:26 | Progress Note ---
Assessment and Plan No objection to discharge shamar arredondo Has follow up already scheduled with him who will manage anticoagulation. No follow up needed with us. Subjective Date of service: 05/23/21 Interval history: STable on room air. Already on oral anticoagulation. Objective Vital Signs - 12hr 05/23/21 05/23/21 05/23/21 04:21 04:50 07:47 Temperature 98.4 F 98.6 F Pulse Rate 77 65 54 L Respiratory 20 19 Rate Blood Pressure 150/91 139/80 O2 Sat by Pulse 98 92 Oximetry 05/23/21 08:34 Temperature Pulse Rate 57 L Respiratory Rate Blood Pressure O2 Sat by Pulse Oximetry Constitutional: no acute distress Eyes: non-icteric ENT: oropharynx moist Neck: supple, no JVD Effort: normal Ascultation: Bilateral: clear Percussion: Bilateral: not dull Cardiovascular: regular rate and rhythm Gastrointestinal: normoactive bowel sounds, soft, non-tender Integumentary: normal Extremities: no cyanosis, no edema, pink and warm Neurologic: normal mental status, non-focal exam Psychiatric: mood appropriate CBC and BMP: 05/22/21 14:52 05/22/21 14:52 ABG, PT/INR, D-dimer: PT/INR, D-dimer PT 16.7 Sec. (12.2-14.9) H 05/22/21 14:52 INR 1.29 (0.87-1.13) H 05/22/21 14:52 D-Dimer 1092.37 ng/mlDDU (0-234) H 05/20/21 17:30 Abnormal lab findings: Abnormal Labs 05/20/21 05/20/21 05/20/21 16:08 16:08 17:30 RBC 5.44 H Hgb 16.1 H Hct 47.1 H MCHC [place] % (Auto) 7.7 H [place] # (Auto) Seg Neutrophils % 75.8 H Seg Neutrophils # 8.3 H PT INR D-Dimer 1092.37 H Heparin Anti-Xa Level Sodium 135 L BUN Glucose 114 H Alkaline Phosphatase 131 H Albumin 05/21/21 05/21/21 05/21/21 05:29 05:29 05:29 RBC Hgb Hct MCHC 35 H [place] % (Auto) 9.2 H [place] # (Auto) 0.9 H Seg Neutrophils % Seg Neutrophils # PT INR D-Dimer Heparin Anti-Xa Level 0.21 L Sodium BUN 8 L Glucose Alkaline Phosphatase Albumin 3.4 L 05/22/21 14:52 RBC Hgb Hct MCHC [place] % (Auto) [place] # (Auto) Seg Neutrophils % Seg Neutrophils # PT 16.7 H INR 1.29 H D-Dimer Heparin Anti-Xa Level Sodium BUN Glucose Alkaline Phosphatase Albumin
--- NOTE | 2021-05-23 11:41 | Electrocardiograph Report ---
[facility] [place] Test Date: 2021-05-20 Test Time: 15:44:11 Pat Name: ANDRES ALEJANDRO Department: Room: A476 1 Gender: M [employer]: : 1960 Requested By: SENA RAMIREZ Order Number: [id number] Reading MD: Shaji Hopkins Measurements Intervals [place] Rate: 56 P: 82 OR: 149 QRS: 12 QRSD: 78 T: 91 QT: 419 QTc: 405 Interpretive Statements Sinus bradycardia Biatrial enlargement Anteroseptal infarct, age indeterminate No previous ECG available for comparison Electronically Signed On 05-23-2021 11:40:45 EDT by Shaji Hopkins
[2021-05-24] MEDS: ACETAMINOPHEN 325 MG TAB PO PRN (06:29)
[2021-05-24 06:48] LABS: Basophils % (Auto) 0.1 % (0.0-1.8); Hematocrit 43.3 % (35.5-45.6); Hemoglobin 14.7 gm/dl (11.8-15.2); Lymphocytes # (Auto) 1.3 K/mm3 (1.2-5.4); Lymphocytes % (Auto) 7.4 % (13.4-35.0); Mean Corpuscular HGB Conc 34 % (32-34); Mean Corpuscular Volume 86 fl (84-94); Monocytes # (Auto) 1.1 K/mm3 (0.0-0.8); Platelet Count 279 K/mm3 (140-440); Red Blood Count 5.06 M/mm3 (3.65-5.03); Red Cell Distribution Width 14.6 % (13.2-15.2)
[2021-05-24 07:08] LABS: Blood Urea Nitrogen 10 mg/dL (9-20); Calcium 10.1 mg/dL (8.4-10.2); Hemolysis Index 1
[2021-05-24 07:10] LABS: BUN/Creatinine Ratio 14
[2021-05-24] MEDS: APIXABAN 5 MG TAB PO SCH (09:14)
[2021-05-24] MEDS: FAMOTIDINE 20 MG TAB PO SCH (09:14)
[2021-05-24 11:01] VITALS: BP 137/81
--- NOTE | 2021-05-24 11:08 | Discharge Summary ---
Providers - Providers Date of Admission: 05/20/21 22:08 Date of discharge: 05/24/21 Attending physician: JEAN PAUL JENKINS 05/21/21 10:42 Consult to Physician [CONS] Routine Comment: Consulting Provider: SHANNON NEAL Physician Instructions: Reason For Exam: PE 05/22/21 08:47 Consult to Physician [CONS] Routine Comment: Consulting Provider: LUIS SANTOS Physician Instructions: Reason For Exam: hypercoagulable work up for unprovoked PE Primary care physician: [employer] Hospitalization Condition: Fair Hospital course: 60-year-old male presented through the emergency department with chest pain. CTA of the chest/pulmonary perfusion imaging confirmed acute pulmonary embolus. Patient was admitted with diagnosis of acute pulmonary embolus and placed on IV heparin for anticoagulation. He was evaluated by Pulmonology and Vasc Surgery. He improved was switched to Eliquis and eventually discharged home on 05/24/21 Acute pulmonary embolism/pulmonary infarct Chest pain. Etiology secondary to #1 Marijuana use 05/21/2021. Patient will be maintained on IV heparin drip for now. We will transition to Eliquis. Check echocardiogram to rule out right heart strain. Vascular surgery consultation 05/22/2021. Patient will be transition to Eliquis today. Vascular surgery reports that patient has proximal abdominal aorta that appears ectatic with mural thrombus which suggests he may have an infrarenal aneurysm. Vascular surgery recommends an abdominal aortic ultrasound to evaluate the size of the aorta for aneurysmal dilatation. Consult hematology for hypercoagulable work-up given unprovoked PE 05/23/2021. Follow-up abdominal aortic ultrasound to evaluate aorta for aneurysmal dilatation. Hematology consulted for hypercoagulable work-up given unprovoked PE. Continue Eliquis. 05/24/21 Patient doing better. Stable to discharge home on Eliquis. Disposition: DC-01 TO HOME OR SELFCARE Final Discharge Diagnosis (Prints w/discharge instructions): 1.Pulmonary Embolism Time spent for discharge: 36 mins - Discharge Diagnoses (1) Pulmonary embolism and infarction Status: Acute (2) Marijuana use Status: Acute Core Measure Documentation - Palliative Care Palliative Care/ Comfort Measures: Not Applicable - Core Measures Any of the following diagnoses?: DVT/PE - VTE Discharge Requirements Deep Vein Thrombosis/Pulmonary Embolism Present on Admission: Yes Has pt received <5 days of overlap therapy or INR<2.0: No Anticoagulant overlap therapy prescribed at discharge: No Contraindication No Overlap Therapy order at DC: Not Indicated (Eliquis ordered) Exam - Constitutional Vitals: Temp Pulse Resp BP Pulse Ox 97.5 F L 69 18 137/81 92 05/24/21 10:31 05/24/21 10:31 05/24/21 10:31 05/24/21 10:31 05/24/21 10:31 Plan Activity: advance as tolerated Diet: low fat, low cholesterol Special Instructions: other ((1) Follow up with PCP in 1 week. (2) Follow up with Dr. Webster, Hematology in 1 week) Plan of Treatment: 1.Follow up with PCP in 1 week. 2.Follow up with Hematology, Dr. Webster in 1 week Follow up with: LUIS FERNANDO WEBSTER MD [Staff Physician] - 7 Days PRIMARY CARE, [Primary Care Provider] - 3-5 Days Prescriptions: Apixaban [Eliquis] 5 mg PO Q12HR 30 Days #60 tablet Apixaban [Eliquis] 10 mg PO Q12HR #18 tablet traMADoL [Ultram 50 MG tab] 50 mg PO Q6HR PRN #12 tablet PRN Reason: Pain
[2021-05-29] MEDS ORDERED: APIXABAN 5 MG TAB PO SCH (10:00)
[2021-06-01 08:59] LABS: Factor V (Leiden) Mutation SEE SCANNED RESULT
[2021-06-07 08:07] LABS: Hemoglobin A2 Prime SEE SCANNED RESULTS
[2021-06-07 08:09] LABS: Hemoglobin Barts SEE SCANNED RESULTS; Hemoglobin E SEE SCANNED RESULTS; Hemoglobin G SEE SCANNED RESULTS; Hemoglobin Lepore SEE SCANNED RESULTS; Hemoglobin O-Arab SEE SCANNED RESULTS; IEF Confirm SEE SCANNED RESULTS; Interpretation SEE SCANNED RESULTS; Sickle Solubility Test SEE SCANNED RESULTS
== END 2021-05-24 17:13 | disposition home or self-care (01) | DRG 176 ==
LOC: ED 15:28 → 3A 22:08 → 4A 23:07
PROVIDERS: ADMIT Internal Medicine Geriatric Medicine; ATTEND Internal Medicine
DX: I26.99 Other pulmonary embolism without acute cor pulmonale (principal); F14.929 Cocaine use, unspecified with intoxication, unspecified; H54.7 Unspecified visual loss; D68.9 Coagulation defect, unspecified; D57.3 Sickle-cell trait; Z98.42 Cataract extraction status, left eye; Z79.899 Other long term (current) drug therapy; Z79.891 Long term (current) use of opiate analgesic; Z79.01 Long term (current) use of anticoagulants
CPT/HCPCS: 36415; 71046; 71275; 78580; 80048; 80053; 82565; 83036; 84484; 85014; 85018; 85025; 85027; 85049; 85210; 85220; 85379; 85520; 85610; 85730; 93005; 93306; 93970; 93979; 96365; 96375; 99406; G0378; A9540; J0456; J0696; J1644; J2930; J7030; Q9967